=== PATIENT | female | born 1985 | race Caucasian/White ===

== ENCOUNTER 2016-09-12 11:05 | Emergency (ER) | payer MEDICAID, OTHER ==
[~2016-09-12] VITALS: Ht 152.4 cm; Wt 47.5 kg
[2016-09-12 11:07] VITALS: Ht 152.4 cm; Wt 47.5 kg
[2016-09-12] MEDS ORDERED: SOD CHLORIDE 0.9% 1,000 ML IV STA (11:31)
[2016-09-12] MEDS ORDERED: ONDANSETRON 4 MG INJ IV STA (11:31)
[2016-09-12] MEDS ORDERED: morphine 4 MG/ML VIAL IV STA (11:31)
[2016-09-12] MEDS ORDERED: ACETAMINOPHEN 500 MG TAB PO STA (11:31)
[2016-09-12 12:15] LABS: ADD SCAN DIFF NO
[2016-09-12 12:17] LABS: ABNORMAL IP MESSAGE 1; HEMATOCRIT 31.1 % (37.0-47.0); HEMOGLOBIN 9.5 g/dl (12.0-16.0); MEAN CORPUSCULAR HEMOGLOBIN 21.3 pg (29.0-33.0); MEAN CORPUSCULAR HGB CONC 30.5 g/dl (32.0-37.0); MEAN CORPUSCULAR VOLUME 69.7 fl (82.0-101.0); MEAN PLATELET VOLUME 8.9 fl (7.4-10.4); PLATELET COUNT 532 10^3/UL (140-415); RED BLOOD COUNT 4.46 10^6/ul (4.20-5.40); RED CELL DISTRIBUTION WIDTH 17.2 % (11.5-14.5); WHITE BLOOD COUNT 16.1 10^3/ul (4.8-10.8)
[2016-09-12 12:38] LABS: ALBUMIN 4.1 g/dl (3.3-4.9); POTASSIUM 3.2 mmol/L (3.5-5.1)
[2016-09-12 12:41] LABS: ALBUMIN/GLOBULIN RATIO 1.36; BILIRUBIN,INDIRECT 0.6 mg/dl (0-1.1); BILIRUBIN,TOTAL 0.6 mg/dl (0.2-1.3); CALCIUM 8.6 mg/dl (8.4-10.2); CREATININE 0.61 mg/dl (0.44-1.00); TOTAL PROTEIN 7.1 g/dl (6.1-8.1)
[2016-09-12] MEDS ORDERED: POTASSIUM CHLORIDE (SR) 20 MEQ TAB PO STA (12:54)
--- NOTE | 2016-09-12 14:02 | RADRPT ---
PROCEDURE: CT Abdomen and Pelvis without contrast CLINICAL INDICATION: Abdominal pain, headache, body aches, fever x1 day TECHNIQUE: Transaxial images were obtained through the abdomen and pelvis on a multi-slice scanner without the intravenous contrast administration. No oral contrast had previously been given. Sagit wm and coronal re-formations were subsequently reconstructed. One or more of the following dose reduction techniques were used: - Automated exposure control. - Adjustment of the mA and/or kV according to patient size. - Use of iterative reconstruction technique. Radiation dose: CTDIvol = 4.99 mGy; DLP = 267.72 mGy-cm. COMPARISON: No prior studies are available for comparison. FINDINGS: Lung bases: The visualized lung bases appear unremarkable. Liver: Normal in size and in attenuation. There is no focal lesion. Gallbladder: The bladder is mildly distended. No radiopaque stone is evident on the wall is not thi ckened. Bile ducts: The intra and extrahepatic bile ducts are normal in caliber. Pancreas: Appears normal with no mass or inflammation evident. Spleen: Normal in size with no focal lesion. Adrenals: Normal with no mass identified. Kidneys, ureters and bladder: The kidneys are normal in size and there is no mass, pathological calc ification, or hydronephrosis evident. There is no perinephric stranding. The ureters are normal in c aliber and no ureteroliths are identified. The bladder appears unremarkable. Reproductive organs: The uterus deviates slightly to the left of midline. No adnexal mass is identi fied. Stomach and bowel: The bowel appears unremarkable with no evidence of bowel obstruction or inflammat ion. The stomach appears unremarkable. Appendix: The vermiform appendix is not discretely identified. Peritoneum: No free intraperitoneal fluid or air is identified. Aorta: Normal in caliber with no aneurysmal dilatation. IVC: Unremarkable. Lymph nodes: A few small shotty retroperitoneal nodes are evident up to 6 mm in short diameter. Osseous structures: The osseous elements appear intact. IMPRESSION: 1. Substantial stool seen in the right colon without evidence of bowel obstruction or inflammation. The vermiform appendix is not discretely identified. 2. No evidence of urinary outflow obstruction or ureterolithiasis. 3. A few shoddy retroperitoneal nodes are identified up to 6 mm in diameter. 4. Otherwise, unremarkable noncontrast enhanced CT scan of the abdomen and pelvis. Physician Candy Date Time Electronically viewed and signed by Ramon Hood Physician on 09/12/2016 14:01 /
[2016-09-12 14:06] LABS: ADD UMIC YES; URINE BILIRUBIN (Dip) NEGATIVE (NEGATIVE); URINE BLOOD (Dip) 3+ (NEGATIVE); URINE COLOR LT. YELLOW (YELLOW); URINE GLUCOSE (Dip) NEGATIVE (NEGATIVE); URINE KETONES (Dip) 15 (NEGATIVE); URINE LEUKOCYTE ESTERASE (Dip) NEGATIVE (NEGATIVE); URINE NITRITE (Dip) NEGATIVE (NEGATIVE); URINE TOTAL PROTEIN (Dip) NEGATIVE (NEGATIVE); URINE UROBILINOGEN (Dip) 0.2 E.U./dL (0.1-1.0)
[2016-09-12 14:32] LABS: BACTERIA,URINE FEW; URINE RBCS 0-2 /HPF (0)
[2016-09-12] MEDS ORDERED: KETOROLAC 30 MG INJ IV STA (14:44)
[2016-09-12] MEDS ORDERED: FERR325C PO (15:17)
[2016-09-12] MEDS ORDERED: TYL500 PO (15:18)
[2016-09-12] MEDS ORDERED: OSLT75C PO (15:18)
[2016-09-12] MEDS ORDERED: NAPR-260 PO (15:19)
[2016-09-12] MEDS ORDERED: ONDA4TAB8 PO (15:19)
[2016-09-12 15:27] VITALS: BP 95/52; PULSE 98; RESP 20; TEMP 98.9
[2016-09-12 15:32] LABS: LYMPHOCYTES # 1.1 10^3/ul (0.8-2.9); MONOCYTE # 0.6 10^3/ul (0.3-0.9); NEUTROPHIL # 12.7 10^3/ul (1.6-7.5)
--- NOTE | 2016-09-12 15:57 | ERD ---
ER Documentation Chief Complaint Date/Time DATE: 09/12/16 TIME: 15:52 Chief Complaint headache with nausea starting this morning HPI This is a 31-year-old female presents to the ER with multiple complaints. At 2 AM this morning she woke up with a headache, nausea, fever, chills, body pain and abdominal pain. Patient denies vomiting. At 7 AM patient had one bout of nonbloody diarrhea. Patient denies any cough or cold symptoms. She has not traveled anywhere. There are no sick contacts at home. Headache is located on her forehead and is throbbing in quality radiates to the back of her head. Patient denies any falls. She denies any eye pain or vision changes. Patient denies any neck pain or neck stiffness. Patient denies any urinary frequency or dysuria. Patient denies any chest pain or shortness of breath ROS 12 point review of systems was done, all negative except per HPI. Medications Home Meds Active Scripts Naproxen* (Naprosyn*) 500 Mg Tablet, 500 MG PO BID Y for PAIN AND/OR INFLAMMATION, #30 TAB Prov:SIVA SANCHEZ 09/12/16 Ondansetron Hcl* (Zofran*) 4 Mg Tablet, 4 MG PO Q6H for NAUSEA AND/OR VOMITING, #30 TAB Prov:SIVA SANCHEZ 09/12/16 Oseltamivir Phosphate* (Tamiflu*) 75 Mg Capsule, 75 MG PO BID for 5 Days, CAP Prov:SIVA SANCHEZ 09/12/16 Acetaminophen* (Tylenol*) 500 Mg Tab, 1000 MG PO Q8H Y for PAIN AND OR ELEVATED TEMP, #30 TAB Prov:SIVA SANCHEZ 09/12/16 Ferrous Sulfate (Iron) 325 Mg Capsule.er, 325 MG PO BID for 30 Days, CAP Prov:DANIELSIVA BEE C 09/12/16 Allergies Allergies: Coded Allergies: No Known Allergy (Unverified , 09/12/16) PMhx/Soc Medical and Surgical Hx: pt denies Medical Hx, pt denies Surgical Hx Physical Exam Vitals Vital Signs Date Time Temp Pulse Resp B/P Pulse Ox O2 Delivery O2 Flow Rate FiO2 09/12/16 15:27 98.9 98 20 95/52 98 Room Air 09/12/16 11:07 100.5 110 18 92/55 100 Physical Exam GENERAL: The patient is well developed and appropriate for usual state of health , in no apparent distress. HEENT: Atraumatic. Conjunctivae are pink. Pupils equal, round, and reactive to light. Extraocular muscles are grossly intact. Bilateral tympanic membranes are clear with no evidence of erythema, effusion or dulling of the light reflex. The oropharynx is clear with no erythema or exudates. NECK: C-spine is soft and supple. There is no cervical lymphadenopathy. No neck stiffness full range of motion of neck. CHEST: Clear to auscultation bilaterally. There are no rales, wheezes or rhonchi. HEART: Regular rate and rhythm. No murmurs, clicks, rubs or gallops. ABDOMEN: Soft tender to palpation in the right upper quadrant and the right lower quadrant. Good bowel sounds. No rebound or guarding. No gross peritonitis. No gross organomegaly or masses. No Vogel sign or McBurney point tenderness. BACK: No midline or flank tenderness. NEURO: Alert and oriented. Result Diagram: 09/12/16 1154 09/12/16 1154 Results 24 hrs Laboratory Tests Test 09/12/16 11:54 09/12/16 13:15 White Blood Count 16.110^3/ul Red Blood Count 4.4610^6/ul Hemoglobin 9.5g/dl Hematocrit 31.1% Mean Corpuscular Volume 69.7fl Mean Corpuscular Hemoglobin 21.3pg Mean Corpuscular Hemoglobin Concent 30.5g/dl Red Cell Distribution Width 17.2% Platelet Count 26341^3/UL Mean Platelet Volume 8.9fl Neutrophils % 79.0% Band Neutrophils % 10.0% Lymphocytes % 7.0% Monocytes % 4.0% Eosinophils % % Basophils % % Nucleated Red Blood Cells % /100WBC Neutrophils # 12.710^3/ul Lymphocytes # 1.110^3/ul Monocytes # 0.610^3/ul Eosinophils # 10^3/ul Basophils # 10^3/ul Nucleated Red Blood Cells # 10^3/ul Sodium Level 139mmol/L Potassium Level 3.2mmol/L Chloride Level 105mmol/L Carbon Dioxide Level 21mmol/L Anion Gap 16 Blood Urea Nitrogen 12mg/dl Creatinine 0.61mg/dl Glucose Level 102mg/dl Calcium Level 8.6mg/dl Total Bilirubin 0.6mg/dl Direct Bilirubin 0.00mg/dl Indirect Bilirubin 0.6mg/dl Aspartate Amino Transf (AST/SGOT) 28IU/L Alanine Aminotransferase (ALT/SGPT) 25IU/L Alkaline Phosphatase 72IU/L Total Protein 7.1g/dl Albumin 4.1g/dl Globulin 3.00g/dl Albumin/Globulin Ratio 1.36 Lipase 48U/L Urine Color LT. YELLOW Urine Clarity CLEAR Urine pH 5.0 Urine Specific [place] <=1.005 Urine Ketones 15 Urine Nitrite NEGATIVE Urine Bilirubin NEGATIVE Urine Urobilinogen 0.2 E.U./dL Urine Leukocyte Esterase NEGATIVE Urine Microscopic RBC 0-2/HPF Urine Microscopic WBC 0-2/HPF Urine Epithelial Cells FEW Urine Bacteria FEW Urine Hemoglobin 3+ Urine Glucose NEGATIVE% Urine Total Protein NEGATIVE Current Medications Medications (Trade) Dose Ordered Sig/Eulogio Route PRN Reason Start Time Stop Time Status Last Admin Dose Admin Sodium Chloride (NS) 1,000 ml @ 1,000 mls/hr Q1H STAT IV 09/12/16 11:31 09/12/16 12:30 DC 09/12/16 12:02 Morphine Sulfate (morphine) 4 mg ONCE STAT IV 09/12/16 11:31 09/12/16 11:33 DC 09/12/16 12:03 Ondansetron HCl (Zofran Inj) 4 mg ONCE STAT IV 09/12/16 11:31 09/12/16 11:33 DC 09/12/16 12:02 Acetaminophen (Tylenol Tab) 1,000 mg ONCE STAT PO 09/12/16 11:31 09/12/16 11:33 DC 09/12/16 12:03 Potassium Chloride (Klor-Con 20) 40 meq ONCE STAT PO 09/12/16 12:54 09/12/16 13:30 DC 09/12/16 13:56 Ketorolac Tromethamine (Toradol) 30 mg ONCE STAT IV 09/12/16 14:44 09/12/16 14:45 DC 09/12/16 15:00 Procedures/MDM Differential diagnosis includes but is not limited to; influenza, otitis media, strep throat, UTI, pyelonephritis, meningitis, appendicitis, cholecystitis, encephalitis, sepsis. This is a 31-year-old female presents to the ER with multiple complaints. At this time this is likely a febrile illness which is likely a virus. Patient did have some tenderness in the right lower quadrant on physical examination however there is no evidence of appendicitis. Suspicion for UTI or pyelonephritis is low. I doubt acute intracranial pathology is patient's neurological exam is completely benign, she has no focal neurological deficits. Patient does not have any meningeal signs to suggest meningitis. At this time I do not believe that CT scan of the head is needed as patient's pain was controlled here in the ER. Patient states she has a past medical history of hypotension, likely explain her low blood pressure. Her fever was controlled here in the ER. Patient will be sent home with naproxen, Tylenol, Tamiflu, Zofran. She will also be given iron for her anemia. She is to follow-up with her primary care doctor within 1-2 days return to ER sooner if symptoms worsen. My medical decision making was shared with the patient she understands and agrees with plan. Departure Diagnosis: Primary Impression: Febrile illness Additional Impression: Headache Condition: Stable Patient Instructions: Self-Care for Headaches Additional Instructions: Llame al doctor LEENA y anthony joe [place] PARA DENTRO DE 1-2 JOHN.Dgale a la secretaria que nosotros le instruimos hacer esta [place].Avise o llame si denson condicin se empeora antes de la [place]. Regresa aqui si peor o no mejor. SIVA SANCHEZ Sep 12, 2016 15:56
== END 2016-09-12 15:29 | disposition home or self-care (01) ==
LOC: FTE 11:05
DX: R50.9 Fever, unspecified (principal); R51 Headache; R11.0 Nausea
CPT/HCPCS: 36415; 74176; 80053; 81001; 81003; 83690; 85025; 87400; 96374; 96375; J1885; J2270; J2405; J7030; Z7502; Z7610